=== PATIENT | female | born 1960 | race Two or more races ===

== ENCOUNTER 2022-01-16 08:54 | Emergency (ER) | payer OTHER, SELFPAY ==
[2022-01-16 09:51] VITALS: BP 154/76; PULSE 75; RESP 16; TEMP 36.3; O2SAT 99; BMI 31.9
--- NOTE | 2022-01-16 11:30 | ED.GENADULT ---
HPI - General Adult General Chief complaint: Ear Problems Stated complaint: Ear Pain Time Seen by Provider: 01/16/22 11:01 Source: patient Mode of arrival: ambulatory Limitations: no limitations History of Present Illness HPI narrative: 61-year-old female with past medical history of bilateral tinnitus followed by ENT presents to the emergency department with left ear pain when chewing and opening her mouth. She states symptoms began 7 days ago and have been constant since onset. Her pain is currently rated as a 5/10 in severity and described as a dull ache with no radiation. Associated symptoms include difficulty opening her mouth and chewing due to ear discomfort. She states she was seen in October by ENT specialist regarding the ringing in her ears with no diagnosis per patient. She states she did not have ear pain at the time of her ENT consult. This she denies any trauma to the ear, fever, chills, sinus pain, rhinorrhea, shortness of breath, difficulty swallowing, headache, vision changes, dental pain or disorders. She states she has a history of fluid in her ears with several ear tubes placed while in [place]. Onset (ago): day(s) (7) Related Data Allergies Allergy/AdvReac Type Severity Reaction Status Date / Time No Known Allergies Allergy Verified 01/16/22 09:50 Review of Systems Review of Systems: In addition to documented HPI above, the additional ROS was obtained: CONSTITUTIONAL: Denies fever, chills, weakness, fatigue, headache EYES: Denies vision changes ENT: Hearing normal. Denies sore throat, congestion CV: Denies chest pain or epigastric pain RESP: Denies shortness of breath GI: Denies vomiting or diarrhea : Denies painful urination MSK: Denies recent trauma, change in gait, body aches SKIN: Denies no lesions, rashes, or sores NEURO: Denies new numbness, tingling, or weakness ENDOCRINE: Denies unexpected weight loss, increased thirst, urination, or hunger HEME/ONC: Denies bleeding disorders Yes all other systems are reviewed and are negative PMFSH Past Medical History Attestation statement: The following information was validated with the patient. Source: old records reviewed Social History Social History Advance Directives: No Physical Exam ED Vital Signs: Vital Signs - 24 hr 01/16/22 09:51 Temperature 97.3 F Pulse Rate 75 Respiratory Rate 16 Blood Pressure 154/76 H Pulse Oximetry 99 Oxygen Delivery Method Room Air BMI result Body Mass Index 31.9 Const General: cooperative, no acute distress, alert and awake Nutritional Appearance: well nourished Orientation/consciousness: patient oriented x3 Limitations: no limitations [facility] Head: Yes normal to inspection and Yes atraumatic Ears: hearing grossly normal bilaterally, external ears normal, TM's normal bilaterally and EAC's normal General nose exam: Normal external nose present and Normal nares present Face and sinus: Yes normal facial exam, Yes face symmetric, No ecchymosis, No erythema, No edema and No Facial tenderness on exam of face and sinuses Mouth: Normal oral and palatal mucosa present, tongue normal and oropharynx normal Teeth and gingiva: fair dentition Throat: Yes posterior oropharynx normal and No peritonsillar mass Eyes General: appearance normal, both eyes and all related structures Alignment and Position: alignment normal Periorbital: periorbital findings normal Eyelids: Yes eyelids normal Conjunctivae: conjunctivae normal Sclerae: sclerae normal Pupils: Equal, round and reactive pupils present EOM: EOMs intact bilaterally Neck Neck: Yes normal visual inspection and Yes full ROM Chest Chest palpation & inspection: normal inspection of the chest Resp Effort & Inspection: normal respiratory effort and able to speak in complete sentences Auscultation: clear to auscultation bilaterally, no crackles, no rhonchi and no wheezes Cardio Rate: regular rate Rhythm: regular rhythm Back/Spine/Pelvis Cervical Spine: cervical ROM normal Skin General skin exam: no rashes or lesions noted Neuro General: patient oriented x3 Cranial nerves: Yes Equal, round and reactive pupils present Cognition (Neuro): normal cognition Gait exam (Neuro): Normal gait present Motor exam (neuro): 5/5 motor strength present throughout Extrem General: Yes normal to inspection, Yes full ROM and Yes capillary refill normal Psych Appearance: grossly normal Mental Status: mental status grossly normal Speech and movement: Normal speech and movement present Affect: normal affect Attitude: cooperative Medications Administered Discontinued Medications Generic Name Dose Route Start Last Admin Trade Name Freq PRN Reason Stop Dose Admin Ketorolac Tromethamine 15 mg 01/16/22 11:30 01/16/22 11:45 Ketorolac Tromethamine 15 Mg/Ml Vial IM 01/16/22 11:31 15 mg ONCE ONE Administration Medical Decision Making [facility] Narrative Medical decision making narrative: 61-year-old female with past medical history of bilateral tinnitus followed by ENT presents to the emergency department with left ear pain when chewing and opening her mouth. Limited jaw movement without clicking or popping noted on physical exam. Pain not reproducible with palpation. Physical exam and history consistent with suspected temporomandibular disorder due to unilateral jaw claudication, limited jaw movement, jaw muscle fatigue after eating, and bilateral ear tinnitus. Low suspicion of temporal arteritis or trigeminal neuralgia as pain is described as dull aching versus sharp and superficial and no tenderness or crepitus noted with palpation of mandible, temporomandibular joint or temporal artery. No trismus noted. History and physical exam results discussed with patient with no unanswered questions at this time. Patient is safe for discharge. Patient educated to return to the emergency department with worsening pain, dizziness, disequilibrium, fever, chills, vision changes, headache, and any other symptoms that are concerning. Recommended to follow up with ENT provider who previously saw her for tinnitus. Recommended follow-up with primary care provider. Discharge Plan Discharge Clinical Impression: TMJ (temporomandibular joint disorder) Patient Disposition: Home, Self-Care Instructions: Temporomandibular Disorder (ED) Additional Instructions: Educated she is safe for discharge and to return to the emergency department with worsening pain, dizziness, disequilibrium, fever, chills, vision changes, headache, and any other symptoms that are concerning. Recommended to follow up with ENT provider who previously saw you for tinnitus. Recommended follow-up with primary care provider. [place] [facility] [place] [facility] [place] [facility] [place] [facility] [place] [facility] [place]] Print Language: [place]
[2022-01-16] MEDS: Ketorolac Tromethamine 15 MG/ML VIAL IM (11:45)
== END 2022-01-16 12:27 | disposition home or self-care (01) ==
PROVIDERS: Emergency Provider Emergency Medicine
DX: M26.602 Left temporomandibular joint disorder, unspecified (principal); R51.9 Headache, unspecified; Z79.899 Other long term (current) drug therapy
CPT/HCPCS: 96372; 99282; 99283; 99284; J1885